=== PATIENT | female | born 1960 | race Caucasian/White ===

== ENCOUNTER 2017-02-06 08:30 | Observation (INO) | payer BC ==
[~2017-02-06] VITALS: Ht 152.4 cm; Wt 91.9 kg
[2017-02-06 10:31] LABS: HEMATOCRIT 37.8 % (36.0-46.0); HEMOGLOBIN 12.9 G/DL (11.9-15.5); MCH 29.4 PG (29.0-34.0); MCHC 34.1 G/DL (30.0-36.0); MCV 86.1 FL (83-99); PLATELET COUNT 162 K/uL (156-360); RBC DIS.WIDTH-SD 40.7 % (39-53); RED BLOOD COUNT 4.39 M/uL (3.80-5.20); WHITE BLOOD COUNT 9.9 K/uL (4.1-10.2)
[2017-02-06 10:41] LABS: ALBUMIN 3.9 g/dL (3.2-4.8); CHLORIDE 106 mEq/L (99-109)
[2017-02-06 10:42] LABS: POTASSIUM 3.7 mEq/L (3.7-5.4); SODIUM 141 mEq/L (136-147)
[2017-02-06 10:44] LABS: GLUCOSE 138 mg/dL (70-99)
[2017-02-06 10:46] LABS: TOTAL BILIRUBIN 0.5 mg/dL (0.0-1.0)
[2017-02-06 10:47] LABS: ALKALINE PHOSPHATASE 117 IU/L (3-129); GFR ESTIMATE (CALCULATED) > 59 mL/min/
[2017-02-06 10:49] LABS: AST (GOT) 19 IU/L (2-34); UREA NITROGEN (BUN) 7 mg/dL (9-23)
[2017-02-06 10:50] LABS: ALT (GPT) 18 IU/L (3-49)
[2017-02-06 15:02] VITALS: BP 175/81
[2017-02-06] MEDS ORDERED: ATORVASTATIN CA20 MG PO (15:11)
[2017-02-06] MEDS ORDERED: ERGOCALCIF50000 UNIT PO (15:11)
[2017-02-06] MEDS ORDERED: SERTRALINE HCL100 MG PO (15:11)
[2017-02-06] MEDS ORDERED: RALOXIFENE HCL60 MG PO (15:11)
[2017-02-06] MEDS ORDERED: ASPIR-LOW81 MG PO (15:12)
[2017-02-06 16:09] VITALS: BP 161/68
[2017-02-06 19:31] VITALS: BP 155/75
[2017-02-06 23:43] VITALS: BP 147/70
[2017-02-07 03:43] VITALS: BP 171/79
[2017-02-07 05:43] LABS: HEMATOCRIT 32.6 % (36.0-46.0); HEMOGLOBIN 10.8 G/DL (11.9-15.5); MCH 29.3 PG (29.0-34.0); MCHC 33.1 G/DL (30.0-36.0); MCV 88.3 FL (83-99); PLATELET COUNT 132 K/uL (156-360); RBC DIS.WIDTH-CV 13.2 % (11.8-14.6); RBC DIS.WIDTH-SD 42.7 % (39-53); RED BLOOD COUNT 3.69 M/uL (3.80-5.20); WHITE BLOOD COUNT 8.6 K/uL (4.1-10.2)
[2017-02-07 05:54] LABS: CHLORIDE 108 MEQ/L (99-109); CREATININE 1.1 MG/DL (0.6-1.3); GFR ESTIMATE (CALCULATED) 54 mL/min/; POTASSIUM 3.4 MEQ/L (3.7-5.4); SODIUM 144 MEQ/L (136-147); UREA NITROGEN (BUN) 7 mg/dL (9-23)
[2017-02-07 05:58] LABS: GLUCOSE 99 mg/dL (70-99)
[2017-02-07 07:39] VITALS: BP 149/76
[2017-02-07 11:43] VITALS: BP 169/81
[2017-02-07 15:45] VITALS: BP 157/81
[2017-02-07 19:30] VITALS: BP 139/78
[2017-02-08 00:20] VITALS: BP 157/73
[2017-02-08 04:17] VITALS: BP 189/93
[2017-02-08 07:41] VITALS: BP 165/84
[2017-02-08 09:24] LABS: HEMATOCRIT 32.5 % (36.0-46.0); HEMOGLOBIN 11.1 G/DL (11.9-15.5); MCH 30.3 PG (29.0-34.0); MCHC 34.2 G/DL (30.0-36.0); MCV 88.8 FL (83-99); PLATELET COUNT 111 K/uL (156-360); RBC DIS.WIDTH-CV 13.2 % (11.8-14.6); RBC DIS.WIDTH-SD 43.1 % (39-53); RED BLOOD COUNT 3.66 M/uL (3.80-5.20); WHITE BLOOD COUNT 4.2 K/uL (4.1-10.2)
[2017-02-08 09:41] LABS: CHLORIDE 108 MEQ/L (99-109); SODIUM 143 MEQ/L (136-147)
[2017-02-08 09:46] LABS: GFR ESTIMATE (CALCULATED) > 59 mL/min/; GLUCOSE 95 mg/dL (70-99); UREA NITROGEN (BUN) 9 mg/dL (9-23)
[2017-02-08] MEDS ORDERED: LISINOPRIL5 MG PO (10:48)
[2017-02-08] MEDS ORDERED: FLONASE16 G1 BOTH NARES (10:48)
[2017-02-08] MEDS ORDERED: ANTIVERT25 MG PO (10:48)
[2017-02-08] MEDS ORDERED: MUCINEX600 MG PO (10:49)
[2017-02-08] MEDS ORDERED: ONDANSETRON ODT4 MG PO (10:49)
[2017-02-08 11:47] VITALS: BP 177/93
[2017-02-08 13:32] VITALS: BP 138/81
== END 2017-02-08 13:52 | disposition home or self-care (01) ==
LOC: EME 08:30 → EDOF 13:31 → 5WEST 13:31 → EDOF 13:31 → ENRESERV 13:47 → EDOF 13:50 → ENRESERV 14:13 → 5WEST 14:54
PROVIDERS: Emergency Medicine; Hospitalist; Nurse Practitioner Adult Health
DX: R11.2 Nausea with vomiting, unspecified (principal); R42 Dizziness and giddiness; R51 Headache; E78.5 Hyperlipidemia, unspecified; J00 Acute nasopharyngitis [common cold]; F41.9 Anxiety disorder, unspecified; Q60.2 Renal agenesis, unspecified; Z98.84 Bariatric surgery status; Z90.710 Acquired absence of both cervix and uterus; Z88.0 Allergy status to penicillin; Z88.2 Allergy status to sulfonamides
CPT/HCPCS: 70450; 70487; 71010; 80048; 80053; 85027; 87502; 99281; 99285; G0378; G8978 GP CJ; G8979 GP CH; G8980 CJ; J1885; J2405; J7030